=== PATIENT | male | born 1965 | race Caucasian/White ===

== ENCOUNTER 2017-10-30 10:23 | Emergency (ER) | payer BC ==
[2017-10-30 10:33] VITALS: BP 115/83; PULSE 85; TEMP 98.8; BMI 28.0
[2017-10-30] MEDS ORDERED: IBUPROFEN 600 MG TABLET (FP) PO ONE ×2 (10:36→10:40)
--- NOTE | 2017-10-30 10:40 | PDOC ---
History of Present Illness - General Chief Complaint: Pain Stated Complaint: LEFT SHOULDER PAIN Time Seen by Provider: 10/30/17 10:31 - History of Present Illness Initial Comments: Mr Kim is an otherwise healthy 51-year-old male, right-hand dominant, presenting to emergency department with a complaint of left shoulder pain. Patient states she was in his usual state of health, playing basketball today. He fell landing on his left side. No head trauma, loss of consciousness, amnesia. Patient notes severe left shoulder pain. No limitations in range of motion. Pain is localized at the end of the clavicular area. Pain is rated8/10, no radiation, no exacerbating or alleviating factors Patient denies sensory deficits. No numbness tingling in the hand. Cor history: Denies Past medical history: Right finger surgery Medications: Denies ALLERGIES: Denies Social: Denies alcohol, drug, cigarette use, is a police captain senior GENERAL/CONSTITUTIONAL: No: fever, chills, weakness, loss of appetite. HEAD, EYES, EARS, NOSE AND THROAT: No: change in vision, ear pain, discharge, sore throat, throat swelling. CARDIOVASCULAR: No: chest pain, lightheadedness, palpitations, syncope RESPIRATORY: No: cough, shortness of breath, wheezing, hemoptysis, stridor. GASTROINTESTINAL: No: nausea, vomiting, diarrhea, abdominal cramping, rectal bleeding, constipation. GENITOURINARY: No: dysuria, hematuria, frequency, urgency, flank pain. MUSCULOSKELETAL: No: back pain, neck pain, joint pain, muscle swelling or pain SKIN: YEs: abrasions No: rash or easy bruising. NEUROLOGIC: No: headache, vertigo, paresthesias, weakness ENDOCRINE: No: unexplained weight gain or loss HEMATOLOGIC/LYMPHATIC: No: anemia, easy bleeding, swelling nodes. GENERAL: The patient is in no acute distress. HEAD: Normal EYES: PERRLA, EOMI, sclera anicteric, conjunctiva clear. ENT: Ears normal, nares patent, oropharynx clear without exudates. Moist mucous membranes. NECK: Normal range of motion, supple without midline tenderness LUNGS: Breath sounds equal, clear to auscultation bilaterally. No wheezes, and no crackles. HEART:Regular rate and rhythm, normal S1 and S2 without murmur, rub or gallop. ABDOMEN: Soft, nontender, normoactive bowel sounds. No guarding, no rebound. No masses palpable. EXTREMITIES: Left shoulder: swelling noted at the distal clavicle Pt is able to reach across and touch his right shoulder Sensation in tact 2+ DP, UP Cap refill <2 sec NEUROLOGICAL: Cranial nerves II through XII grossly intact. Normal speech. No focal neurological deficits. MUSCULOSKELETAL: Back non-tender to palpation SKIN: Warm, Dry, normal turgor, no rashes or lesions noted. Past History - Past Medical History Allergies/Adverse Reactions: Allergies Allergy/AdvReac Type Severity Reaction Status Date / Time No Known Allergies Allergy Verified 10/30/17 10:25 Home Medications: Ambulatory Orders NK [No Known Home Medication] 10/30/17 Medical Decision Making - Medical Decision Making 10/30/17 12:00 51-year-old [id number] male presented to emergency department with a complaint of left shoulder pain. Examination not consistent with dislocation. X-ray clavicle and shoulder obtained Xray: AC separation Will discharge to home Follow up with Ortho Return to the ER for any other concerns or complaints Clinical Impression: AC separation, initial presentation *DC/Admit/Observation/Transfer Diagnosis at time of Disposition: AC separation Qualifiers: Encounter type: initial encounter Laterality: left Qualified Code(s): S43.102A - Unspecified dislocation of left acromioclavicular joint, initial encounter - Discharge Dispostion Disposition: HOME Condition at time of disposition: Stable Admit: No - Referrals Referrals: Porter Cheng MD [Primary Care Provider] - Vineet Crockett MD [Staff Physician] - Dino Gao MD [Staff Physician] - - Patient Instructions Printed Discharge Instructions: DI for AC Joint Separation, DI for AC Joint Separation Repair Additional Instructions: Mr Kim Thank you for coming in to the ER Please review your X ray finding and the [facility]PTOD[employer] literature Please take motrin for pain Wear sling for comfort Please be sure to follow up with the trading specialist Return to the ER for any other concerns or complaints - Post Discharge Activity Forms/Work/School Notes: Back to Work
== END 2017-10-30 11:53 | disposition home or self-care (01) ==
LOC: FER 10:23
DX: S43.102A Unspecified dislocation of left acromioclavicular joint, initial encounter (principal); W18.39XA Other fall on same level, initial encounter; Y93.67 Activity, basketball; Y92.9 Unspecified place or not applicable
CPT/HCPCS: 73000-TC-LT-FY; 73030-TC-LT-FY; 99282-25